=== PATIENT | male | born 1980 | race Caucasian/White ===

== ENCOUNTER 2017-12-10 07:55 | Emergency (ER) | payer MEDICAID, SELFPAY ==
[2017-12-10 07:56] VITALS: BP 157/88; PULSE 98; RESP 18; TEMP 36.8; O2SAT 97; BMI 39.6
--- NOTE | 2017-12-10 08:11 | ED.VISSUMM ---
- ER Visit Summary Date of Service: 12/10/17 Chief Complaint: Sore throat, stuffy nose, and chronic back pain History of Present Illness: The patient is a 37 M presenting with less than 24 hours of rhinorrhea, sore throat, and a dry cough. No neck pain or fever. He is somewhat nauseated and had a few episodes of diarrhea as well. He has several sick contacts with the same symptoms. He has not had a fever and is still eating and drinking normally. No abdominal pain. He has a history of chronic back and neck pain and states that it is no worse than usual. Denies any pain with neck movement. Denies bowel bladder dysfunction. Physical Examination: Vitals are all within normal limits. Not in distress. Has clear secretions of both nares. Throat looks normal. Neck is supple. No meningeal signs. No lymphadenopathy. Lungs are clear with good air movement. Abdomen is soft and nontender. No rash. Minimal paraspinal lumbar tenderness bilaterally but no midline tenderness, erythema, or fluctuance. Neurologic exam is normal. Test Results: None performed Emergency Department Course and Treatment: He looks well overall. Vitals are within normal limits. No fever. Not in distress. No meningeal signs. He does not have body aches or myalgias. I think flu is unlikely but I suspect he does have some form of viral illness. Given his well appearance, I think he can safely follow-up as an outpatient if not improving and return if worse. I will treat him with naproxen. Treatment Plan: Oral naproxen and fluids Disposition: Home stable condition Impression: Initial encounter acute upper respiratory infection of uncertain pathology, chronic back pain This note was generated with [employer] dictation software. It may contain incorrect words, spelling, and punctuation that were not noted in review of the chart prior to signing ED Disposition - Plan for ED Patient: Chief Complaint: General Illness Instructions: ED Upper Resp Infec No Abx Tx Prescriptions: Naproxen [Naprosyn] 500 mg PO BID PRN #20 tablet Referrals: Care Physician,No Primary [Primary Care Provider] -
--- NOTE | 2017-12-10 08:25 | ED.VISSUMM ---
- ER Visit Summary Date of Service: 12/10/17 Chief Complaint: [] History of Present Illness: The patient is a 37 M [] Physical Examination: [] Test Results: [] Emergency Department Course and Treatment: [] Treatment Plan: [] Disposition: [] Impression: [] This note was generated with [employer] dictation software. It may contain incorrect words, spelling, and punctuation that were not noted in review of the chart prior to signing ED Disposition - Plan for ED Patient: Chief Complaint: General Illness Instructions: ED Upper Resp Infec No Abx Tx Prescriptions: Naproxen [Naprosyn] 500 mg PO BID PRN #20 tablet Cyclobenzaprine [Flexeril] 10 mg PO TID PRN #20 tablet PRN Reason: Muscle Spasm Referrals: Care Physician,No Primary [Primary Care Provider] -
[2017-12-10 08:28] VITALS: BP 142/88; PULSE 82; RESP 16; O2SAT 98
== END 2017-12-10 08:29 | disposition home or self-care (01) ==
LOC: ED 08:16
PROVIDERS: Emergency Provider Emergency Medicine
DX: J06.9 Acute upper respiratory infection, unspecified (principal); M54.5 Low back pain; G89.29 Other chronic pain
CPT/HCPCS: 99282

== ENCOUNTER 2018-07-30 10:06 | Emergency (ER) | payer MEDICAID, SELFPAY ==
[2018-07-30 10:07] VITALS: BP 90/60; PULSE 67; RESP 18; TEMP 36.6; O2SAT 98; BMI 37.3
--- NOTE | 2018-07-30 10:30 | ED.DCSUM_ITS ---
- ER Visit Summary Date of Service: 07/30/18 Chief Complaint: Left shoulder pain History of Present Illness: The patient is a 38 M with a 2 day history of shoulder pain on the left with radiation down to the upper arm. He has pain whenever he abduction his arm and is unable to raise it above 90?. He denies paresthesias. He denies any known injury. Last night he took one dose of ibuprofen without improvement. Physical Examination: Vital signs significant for blood pressure 90/60, otherwise unremarkable. Patient sitting upright in bed no acute distress. Head and neck examination unremarkable. Heart is regular rate and rhythm. Lung sounds are clear. Left upper extremity examination was no reproducible tenderness. He does have full range of motion but does have increased pain with abduction over 90?. He has normal sensation. Normal pulses. Test Results: [] Emergency Department Course and Treatment: This time I do not think x-rays be beneficial. Patient clinically has no recent injury and no sign of dislocation. He will be treated with anti-inflammatories. He will refer to orthopedics if not improved. Treatment Plan: [] Disposition: Discharge Impression: Left shoulder tendinitis This note was generated with [employer] dictation software. It may contain incorrect words, spelling, and punctuation that were not noted in review of the chart prior to signing ED Disposition - Plan for ED Patient: Chief Complaint: Upper Extremity Injury Referrals: Care Physician,No Primary [Primary Care Provider] -
--- NOTE | 2018-07-30 10:30 | ED.DEP ---
ED Disposition - Plan for ED Patient: Disposition: Home or Assisted Living Chief Complaint: Upper Extremity Injury Instructions: ED Sprain Shoulder Prescriptions: Naproxen [Naprosyn] 500 mg PO BID PRN PRN #20 tablet PRN Reason: Pain Referrals: Bright Mann MD [STAFF PHYSICIAN] - As Needed
[2018-07-30] MEDS: Naproxen 500 MG Tablet PO (10:51)
== END 2018-07-30 10:58 | disposition home or self-care (01) ==
LOC: ED 10:47
PROVIDERS: Emergency Provider Emergency Medicine
DX: M75.92 Shoulder lesion, unspecified, left shoulder (principal)
CPT/HCPCS: 99282

== ENCOUNTER 2019-02-06 09:15 | Emergency (ER) | payer MEDICAID, SELFPAY ==
[2019-02-06 09:15] VITALS: BMI 39.6
[2019-02-06 09:16] VITALS: BP 137/87; PULSE 86; RESP 15; TEMP 36.2; O2SAT 96; BMI 26.0
--- NOTE | 2019-02-06 09:27 | ED.RN ---
pt reports that he had flexeril and naproxen left from a shoulder injury. used this weekend with relief. pain in with movments.
--- NOTE | 2019-02-06 09:42 | CT_ITS ---
STUDY: CT ABDOMEN AND PELVIS WITHOUT CONTRAST REASON FOR EXAM: Male, 38 years old. Left flank pain and low back pain. RADIATION DOSAGE (If Supplied By Facility): CTDIvol = ( 22.54 ) mGy, DLP = ( 1295.16 ) mGycm TECHNIQUE: Transaxial images were obtained from the dome of the diaphragm to the symphysis pubis without oral contrast, and without intravenous contrast. Sagittal and coronal images were reconstructed. Individualized dose optimization techniques were used for this CT. COMPARISON: Comparison is made with prior study dated July 16, 2010. FINDINGS: The visualized lung bases are unremarkable. The visualized portions of the heart are within normal limits. Calcified granuloma in the anterior superior aspect of the right lobe of liver. The gallbladder is contracted. There are multiple benign calcified granulomata of the spleen. Normal pancreas. Normal bilateral adrenal glands. 4 mm calculus in the lower pole calyx of the right kidney. 3 mm calculus in the lower pole calyx of the left kidney. Normal visualized stomach. Normal small intestine. Normal colon. The appendix is visualized and appears normal. Normal abdominal aorta. Normal inferior vena cava. There is borderline retroperitoneal lymphadenopathy with enlarged nodes no greater than 10mm in the short axis diameter. Normal urinary bladder. Normal abdominal wall. Normal osseous structures. CT/Abdomen/Pelvis without Cont IMPRESSION: Nonobstructive bilateral intrarenal calculi. Calcified splenic granulomas. Electronically Signed: Jamel Miller, at 11:12 EDT , Service support ,
--- NOTE | 2019-02-06 09:46 | ED.DCSUM_ITS ---
- ER Visit Summary Date of Service: 02/06/19 Chief Complaint: Low back and left testicular pain History of Present Illness: The patient is a 38 M who presents with left low back pain and left testicular pain that became worse today. Patient states the pain is gradually gotten worse over the past 3-4 days. Patient states he fell off the couch this morning and cause increased pain in his low back. Patient describes the pain as stabbing and pressure. Patient states the pain is worse with movement. Patient denies any dysuria or hematuria. Patient denies any urinary or stool incontinence. Physical Examination: Vital signs are stable. Patient is afebrile. Patient is in no acute distress. Patient is sitting on the bed playing video games on his phone with his . Musculoskeletal exam reveals tenderness over the left lower lumbar paraspinal muscles. Straight leg raises were negative bilaterally. Strength is 5/5 bilaterally in the lower extremities. There are no sensory deficits noted. Abdomen is soft. Bowel sounds are normal. There is no tenderness. exam showed some tenderness over the left testicle. It is worse over the epididymis. There is no edema. There is a vertical lie. There are no inguinal hernias noted. Test Results: CT scan of the abdomen and pelvis was obtained. There is no acute intra-abdominal process. Urinalysis was obtained. There is no sign of urinary tract infection. Emergency Department Course and Treatment: Patient was given Toradol. Patient was resting comfortably on reevaluation. Given the patient's tenderness over the epididymis will cover the patient with antibiotics for epididymitis. Patient was instructed to use ice to his low back. Patient was instructed to follow-up with his primary care physician in 5-7 days. Patient understood and was agreeable with the plan. All questions were answered. Disposition: Discharge home Impression: 1. Lumbar strain 2. Epididymitis This note was generated with [employer] dictation software. It may contain incorrect words, spelling, and punctuation that were not noted in review of the chart prior to signing ED Disposition - Plan for ED Patient: Disposition: Home or Assisted Living Diagnosis: Lumbar strain, Epididymitis Instructions: ED Neck Back Pain General Prescriptions: Ciprofloxacin [Cipro] 500 mg PO BID #14 tab Referrals: Care Physician,No Primary [Primary Care Provider] - Gavin Tate MD [STAFF PHYSICIAN] - 5-7 Days
[2019-02-06] MEDS: Ketorolac 30 MG/ML Syringe IV (10:26)
[2019-02-06 10:37] LABS: Color, Urine Yellow (Yellow); Glucose, Dipstick Normal (Normal); Ketone-Dipstick Negative (Negative); Leukocyte Esterase-Dipstick Negative /ul (Negative); Nitrite-Dipstick Negative (Negative); Occult Blood-Urine 25 /ul (Negative); Protein-Dipstick 15 mg/dl (Negative); Specific Gravity, Urine 1.015 (1.002-1.030); Urine Bilirubin Dipstick Negative (Negative); Urine Clarity Sl. Cloudy (Clear); Urine Urobilinogen Normal (Normal)
[2019-02-06 12:24] VITALS: BP 143/79; PULSE 87; RESP 18; O2SAT 98
== END 2019-02-06 12:24 | disposition home or self-care (01) ==
PROVIDERS: Emergency Provider Emergency Medicine
DX: S39.012A Strain of muscle, fascia and tendon of lower back, initial encounter (principal); W17.89XA Other fall from one level to another, initial encounter; Y93.9 Activity, unspecified; Y92.9 Unspecified place or not applicable; N45.1 Epididymitis; F12.90 Cannabis use, unspecified, uncomplicated
CPT/HCPCS: 74176; 81002; 96374; 99283; A4216

== ENCOUNTER 2019-07-25 08:09 | Emergency (ER) | payer MEDICAID, SELFPAY ==
[2019-07-25 08:10] VITALS: BP 132/81; PULSE 74; RESP 17; TEMP 36.7; O2SAT 95; BMI 37.8
--- NOTE | 2019-07-25 08:20 | ED.VIS.GEN ---
History of Present Illness Chief Complaint: Sore Throat Informant: Patient Onset: Yesterday Timing: Waxes and wanes Current Severity: Mild Maximum Severity: Moderate Narrative: Patient presents with sore throat that started yesterday, stating it reminds him of when he had strep throat. Pain is worse than the left. He denies other URI symptoms. No fever. He states he does have some pain when he swallows, but is able to tolerate both solids and liquids. Past Medical History - Allergies and Home Meds Allergies/Adverse Reactions: Allergies No Known Allergies Allergy (Verified 07/25/19 08:10) Primary Care Physician: Care Physician,No Primary [Primary Care Provider] - Prior records reviewed: Yes Past Medical History: - - Reviewed Smoking Status: Former smoker Review of Systems General: Denies: Chills, Fever Eyes: Denies: Visual changes - bilaterally ENT: Reports: Sore throat. Denies: Bilateral ear pain, Rhinorrhea Cardiovascular: Denies: Chest pain Respiratory: Denies: Dyspnea, Cough Gastrointestinal: Denies: Abdominal pain, Nausea, Vomiting Genitourinary: Denies: Dysuria Musculoskeletal: Denies: Neck pain, Back pain Skin: Denies: Rash Neurological: Denies: Headache Endocrine: Denies: Polyuria, Polydipsia Hematologic: Denies: Easy bruising, Easy bleeding Allergy: Denies: Uticaria, Swelling of the mouth, Swelling of the tongue Physical Exam Vital Signs/Narrative: Vital Signs Temp Pulse Resp BP Pulse Ox 07/25/19 08:10 98.0 F 74 17 132/81 H 95 Inital Vital Signs reviewed: Yes General: Well nourished, Well developed Head: Normocephalic Eyes: Perrl, EOMI ENT: Moist mucous membranes, TM's clear, - - Mild posterior pharyngeal cobblestoning. Uvula is midline. Minimal tonsillar enlargement. No exudate. Patient is tolerating secretions well and has a strong voice. Neck: Supple, - - Mild bilateral anterior cervical lymphadenopathy, left greater than right. Cardiovascular: Regular rate, Regular rhythm Respiratory: No distress, CTA bilaterally Abdomen: Soft, Nontender Back: Nontender Extremities: Nontender Skin: Normal color, No rash Neurological: Alert, Oriented x3 Psychological: Normal affect Diagnostic/Tx/Re-eval Rapid strep returns positive. - Medical Decision Making Test results discussed with the patient. He chose injection of Bicillin LA for treatment. Dose will be given here prior to discharge. He will be referred to Dr. Sanchez for follow-up, next on the no doc list. ED Disposition - Plan for ED Patient: Disposition: Home or Assisted Living Diagnosis: Strep pharyngitis Instructions: PHARYNGITIS, Strep (Confirmed) Referrals: Fanta Sanchez, DO [NON-STAFF] - As Needed
[2019-07-25] MEDS: Penicillin G Benzathine 1.2 MU/2 ML Syringe IM (09:04)
== END 2019-07-25 09:21 | disposition home or self-care (01) ==
PROVIDERS: Emergency Provider Emergency Medicine
DX: J02.0 Streptococcal pharyngitis (principal); Z87.891 Personal history of nicotine dependence
CPT/HCPCS: 87077; 87880; 96372; 99282

== ENCOUNTER → 2019-12-27 09:32 | Outpatient (CLI) | payer MEDICAID, SELFPAY ==
[2019-12-27 09:27] VITALS: BMI 37.8
--- NOTE | 2019-12-27 09:33 | RAD_ITS ---
STUDY: X-RAY - RIGHT WRIST REASON FOR EXAM: Medial wrist pain, no specific injury. TECHNIQUE: 3 view(s) of the wrist were obtained. COMPARISON: None. FINDINGS: Normal visualized distal radius and ulna. Normal radiocarpal articulation. Normal distal radioulnar articulation. Normal carpal bones. Normal carpal articulations. Normal carpometacarpal articulation of the thumb. Normal second through fifth carpometacarpal articulations. Normal visualized metacarpal bones. The soft tissue structures are unremarkable. RAD/Wrist min 3 Views IMPRESSION: Normal x-ray examination of the right wrist. Electronically Signed: Mohit Hassan MD at 14:57 EST Tel , Service support ,
--- NOTE | 2019-12-27 10:16 | RAD_ITS ---
STUDY: X-RAY - RIGHT RADIUS AND ULNA REASON FOR EXAM: Medial pain, no specific injury. TECHNIQUE: 2 view(s) of the forearm. COMPARISON: None. FINDINGS: There is no demonstrated soft tissue swelling. Normal visualized radius. Normal visualized ulna. There is a suspected small intra-articular body in the elbow demonstrated only on the AP view. RAD/Forearm 2 Views IMPRESSION: Suspected small intra-articular body in the elbow. Otherwise, unremarkable x-ray examination of the right radius and ulna. Electronically Signed: Mohit Hassan MD at 14:57 EST Tel , Service support ,
== END ==
PROVIDERS: Referring Provider Orthopaedic Surgery; Visit Provider Orthopaedic Surgery
DX: S50.11XA Contusion of right forearm, initial encounter (principal); S60.211A Contusion of right wrist, initial encounter; M25.531 Pain in right wrist
CPT/HCPCS: 73090; 73110

== ENCOUNTER 2020-01-21 09:30 | Outpatient (RCR) | payer MEDICAID, SELFPAY ==
[2019-12-27 09:27] VITALS: BMI 37.8
--- NOTE | 2020-01-01 10:30 | HP.OTEVAL ---
Patient's Visit Information FAZAL SILVA is a 39 year old M, referred to Occupational Therapy by Dr. Jessica Holt DO, with a diagnosis of right wrist/forearm contusion. Date of Evaluation: 12/31/19 Occupational Therapist: CHATO Darden/Luis Alberto, CHT - Subjective Subjective: This 39 year old male was seen for OT eval with dx of right wrist/forearm contusion. Pt states he was hitting ice from his car with his right forearm and wrist. Pt states he slipped while hitting the ice of his car and hit his arm. pt states pain lasted a few days and decided to see for pain. Pt was placed in brace and was instructed to wear brace when he sleeps and keep it on as much as he can. pt does not work. pt plays video games prior to injury pt was playing 5-10 hours a day. pt states since his injury he is playing 4-5 hours at a time. Pt would like to return to his PLOF and IND with ADLS and IADL. - ADLs Comments: pt states lifting items off the ground are more difficulty-. pt states he is compensating for tasks. - Pain right wrist/ forearm 4 Pain Intensity Range: 0, 5 - ROM Forearm: right supination 60 left 70 Wrist: right 55/55 left 60/55 ROM Comments: left wrist UD [address] 15. 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 Goal:: pt will demo right foream/wrist ROM equal to unaffected UE by d/c to return pt to PLOF with ADLS and IADLS. Goal:: pt will report pain no greater than 1/10 with use of ADLS and IADLs by d/c Goal:: pt will report he is IND with ADls and IADLs by d/c. - Rehabilitation General Assessment: This 39 year old male demo with painful right forearm and wrist following contusion 3 weeks ago. Pt demo limited use of right UE as pain limits functional use of right UE for ADLs and IADLS. pt would benefit from skilled OT services 2x week for 4 weeks to decrease pts pain, increase ROM and strength to return pt to PLOF. Today pt was ed. on AROM ex of forearm, wrist and digits. Pt demo understanding was given handout on ex and agree to POC. Rehabilitation Potential: Good - Anticipated Interventions Anticipated Interventions: A/AAROM/PROM, Strengthening, Modalities, Joint Protection/Energy Conservation, Ergonomic Education - Visit Plan Frequency: 1-2x /Week Duration: 4 Weeks TEXT: Thank you for the opportunity to evaluate your patient. For Medicare and Medicare HMO plans, please review the plan of care and approve it. It will need to be FAXED BACK to us at [phone] for Medicare purposes. Please let me know if there are questions or concerns regarding this plan of care. Physician Signature: Date:
--- NOTE | 2020-04-15 12:01 | HP.OT.NRP ---
FAZAL SILVA was seen in my office for initial evaluation on 12/31/19. The following Plan of Care was established for this patient: Initial Frequency: 1-2x /Week Initial Duration: 4 Weeks Plan: cont with PRE on issolation Anticipated Interventions: A/AAROM/PROM, Strengthening, Modalities, Joint Protection/Energy Conservation, Ergonomic Education This patient was last seen in our office 01/21/20. Pertinent comments regarding their Occupational therapy will appear below: pt was seen for 7 OT visits- pt was progressing but continued to struggle with weakness and pain with weight bearing. Pt has not scheduled further apts at this time and is D/C due to time lapse in skilled therapy services. At this point I will be discontinuing this patient from occupational therapy. I would be happy to see this patient again in the future if found appropriate by the physician. Thank you! Cynthia Frazier, OTR/L, CHT
== END 2020-01-21 19:00 | disposition home or self-care (01) ==
LOC: OT 09:30
PROVIDERS: Referring Provider Orthopaedic Surgery; Visit Provider Orthopaedic Surgery
DX: S60.211D Contusion of right wrist, subsequent encounter (principal); S50.11XD Contusion of right forearm, subsequent encounter
CPT/HCPCS: 97035; 97110; 97140; 97166; 97530

== ENCOUNTER 2023-01-15 20:19 | Emergency (ER) | payer MEDICAID, SELFPAY ==
[2023-01-15 20:20] VITALS: BP 153/92; PULSE 67; RESP 16; RESP 18; TEMP 36.1; BMI 40.1
--- NOTE | 2023-01-15 20:50 | EX.ED.DYSGE1 ---
HPI <JW Latham - Last Filed: 01/15/23 20:56> History of Present Illness Chief Complaint: Dental Narrative Narrative: Patient is a 42-year-old male who is currently on Social Security, who presents to the emergency department with left upper jaw pain worse to the molar and premolar as well as the bicuspid. Patient states that this pain is been going on and off for 2 weeks. Patient states that hot and cold does not matter. Patient states that pressure causes most of the pain. He denies any specific swelling. He has been trying to get into a dentist to have his teeth looked at however he is unable to get in for multiple months. He denies any fever or chills, denies any trismus or difficulty breathing. PFSH <JW Latham - Last Filed: 01/15/23 20:56> PFSH Home Medications naproxen 500 mg tablet (Naprosyn) 500 mg PO BID PRN pain #30 tabs 01/15/23 [Rx Last Taken Unknown] Allergy/AdvReac Type Severity Reaction Status Date / Time No Known Allergies Allergy Verified 07/25/19 08:10 Social History (Updated 12/27/19 @ 11:[address] Jessica Holt, DO) Smoking Status: Former smoker ROS <JW Latham - Last Filed: 01/15/23 20:56> ROS ED ROS Narrative Constitutional: Negative for fever, chills, weight loss, weakness Eyes: Negative for vision loss, vision change, double vision ENT: Negative for any sore throat, ear pain, congestion. Positive for left upper jaw pain, left posterior teeth pain Cardiovascular: Negative for any chest pain, tightness, palpitations Respiratory: Negative for any cough, sputum production, hemoptysis, dyspnea, dyspnea on exertion, orthopnea Gastrointestinal: Negative for any abdominal pain, nausea, vomiting, diarrhea, constipation, blood in stool, blood in vomit : Negative for any urinary frequency, dysuria, retention, blood in urine Muscle skeletal: Negative for any muscle joint pain, stiffness, myalgias, arthralgias, neck pain, back pain Neurological: Negative for any headache, syncope, numbness or tingling, dizziness Skin: Negative for any rashes, lumps, itching, abrasions, lacerations Psychiatric: Negative for any depression, anxiety, stress, suicidal ideation, homicidal ideation Hematologic: Negative for any easy bruising, excessive bruising, easy bleeding Allergies: Negative for any eczema, hives, rash EXAM <JW Latham - Last Filed: 01/15/23 20:56> Physical Exam Narrative Exam Narrative: Vital signs reviewed. HEET: Head normocephalic atraumatic, TMs clear bilaterally. Posterior pharynx is clear, moist mucous membranes. Nares clear bilaterally. Patient has cavities to the bicuspid on the left upper jaw, followed by cavities to the premolar as well as the molar on the upper left jaw. Negative for any fluctuance, negative for any signs or symptoms of deep tissue infection. Patient is able to drink cold and hot fluid without any significant discomfort. No suspicion for any Ludwigs Angina. Neck: Supple with no lymphadenopathy or tenderness. No signs of meningismus, negative jolt sign. Cardiac: Regular rate and rhythm no murmurs gallops or rubs, equal peripheral pulses bilaterally. Respiratory: Lungs clear to auscultation bilaterally. No chest tenderness. Abdomen: Soft, nontender, nondistended. No abdominal bruit or pulsatile masses. No hepatosplenomegaly Extremities: No peripheral edema, no signs of gross trauma or deformity. Active full range of motion of all extremities. Neuro: Cranial nerves II through XII intact, no focal neurological deficits. Skin: Clean dry and intact with no rash, purpura, petechiae, vesicles or pustules. Backs/flank: No CVA tenderness, no midline spinal tenderness, no deformity. Psych: Normal mood and affect. No SI, HI or acute psychosis. Const Vital Signs: 01/15/23 20:20 01/15/23 20:20 Temperature 97.0 F L 97.0 F L Temperature Source Temporal Temporal Pulse Rate 67 67 Respiratory Rate 16 18 Blood Pressure 153/92 H 153/92 H Blood Pressure Mean 112 112 <Dr. Oskar Gracia MD - Last Filed: 01/15/23 21:02> Physical Exam Const Vital Signs: 01/15/23 20:20 01/15/23 20:20 Temperature 97.0 F L 97.0 F L Temperature Source Temporal Temporal Pulse Rate 67 67 Respiratory Rate 16 18 Blood Pressure 153/92 H 153/92 H Blood Pressure Mean 112 112 MDM <JW Latham - Last Filed: 01/15/23 20:56> [facility] Differential Diagnosis Differential Diagnosis: Ludwigs Angina Why less likely: No physical evidence. Patient appears well. Differential Diagnosis: Irreversible pulpitis Why less likely: Patient is eating and drinking, pain does not get worse with any hot or cold. Treatment and Re-Evaluation :: Patient appears generally well, patient appears nontoxic, vital signs are stable. Patient presents to the emergency department with complaints of left posterior tooth pain has been ongoing for the last 2 weeks. Patient will receive a dental referral list. There is no signs or symptoms of significant infection. At this time, not believe that antibiotics are necessary. Patient will be given a prescription for naproxen for anti-inflammatories. He will also be given the dental referral list. Patient is happy with the plan of care. Patient received naproxen here before discharge. He was given return precautions. At this time plan is no red flag signs. All questions answered. <Dr. Oskar Gracia MD - Last Filed: 01/15/23 21:02> [facility] Narrative Medical decision making narrative: I have personally performed a face to face assessment of the patient and have reviewed the JAYDA Note. I performed a substantive portion of the visit including all aspects of the following. My hicks findings include: History is remarkable for dental pain and involves tooth #19, 20 and 21. Patient has dental caries noted. There is evidence of periodontal disease. There is also evidence of gingivitis. There is no facial swelling. Patient denies fever or chills. Patient has a traumatic fever, heart murmur, mitral prolapse or SBE. Patient denies difficulty opening closing his mouth. Exam is remarkable for elevated blood pressure. He has poor dentition. There is numerous caries noted. There is no peridental abscess. There is no trismus. There is notes of facial cellulitis. Medical Decision Making patient has dental pain due to dental caries. Patient states cold water makes his pain better. There is no sensitivity to cold or hot. Patient does not have a dentist. We will give him a dental sheet. Lungs are clear to auscultation. Heart was regular. There is no murmur, gallop or rub. There is no Janeway or Osler nodes noted. Patient was treated with NSAID and given dental referral. Other additions or changes: [None] Discharge Plan Triage Chief Complaint: Dental ED Midlevel Provider: Azam Sanchez ED Provider: Oskar Gracia Dx/Rx/DC Orders Clinical Impression: Dental caries, Pain, dental Prescriptions: New naproxen [Naprosyn] 500 mg tablet 500 mg PO BID PRN (Reason: pain) Qty: 30 0RF Primary Care Provider: Care Physician,No Primary Referrals: Care Physician,No Primary [Primary Care Provider] - Activity Restrictions/Additional Instructions: Follow-up with the dental referral list Disposition Disposition: Home, Self Care
[2023-01-15] MEDS: Naproxen 500 MG Tablet PO (21:14)
== END 2023-01-15 21:15 | disposition home or self-care (01) ==
PROVIDERS: Emergency Provider Emergency Medicine; Visit Provider Emergency Medicine
DX: K02.9 Dental caries, unspecified (principal); K08.89 Other specified disorders of teeth and supporting structures; Z87.891 Personal history of nicotine dependence
CPT/HCPCS: 99283

== ENCOUNTER 2024-12-07 11:12 | Emergency (ER) | payer MEDICAID, SELFPAY ==
[2024-12-07 11:13] VITALS: BP 117/80; PULSE 97; RESP 18; TEMP 37.1; O2SAT 95; BMI 40.7
[2024-12-07 15:13] VITALS: PULSE 111; RESP 18; TEMP 38.1; O2SAT 94
--- NOTE | 2024-12-07 15:14 | CT_ITS ---
PROCEDURE: ABDOMEN/PELVIS WITHOUT CONT REASON FOR EXAM: Pain TECHNIQUE: Axial with sagittal and coronal reformats of the abdomen and pelvis without contrast. COMPARISON: None. FINDINGS: Lung bases: Clear Liver: Unremarkable. Gallbladder: Unremarkable. Spleen: Unremarkable. Pancreas: Unremarkable. Adrenals: Unremarkable. Kidneys: 2 mm nonobstructing left lower pole renal calculus. Bladder: Unremarkable. Reproductive Organs: Unremarkable. Bowel: Unremarkable. Appendix: Normal. Lymph nodes: No suspicious lymph node enlargement. Vasculature: Major vascular structures are unremarkable. Peritoneum / Retroperitoneum: No ascites. No free air. Bones: Unremarkable. CT/Abdomen/Pelvis without Cont IMPRESSION: No acute CT process. 2 mm nonobstructing left renal calculus. One or more dose reduction techniques were used (e.g., Automated exposure contr ol, adjustment of the mA and/or kV according to patient size, use of iterative reconstruction technique). Reading Location: [facility]
--- NOTE | 2024-12-07 15:17 | EX.ED.DYSGE1 ---
HPI <JW Latham - Last Filed: 12/07/24 18:23> History of Present Illness Chief Complaint: Cold Sx Narrative Narrative: Patient is a 44-year-old male with no significant medical history presents to the emergency department for 3 days of generalized malaise, cough, body aches. Patient states he is also having left-sided flank pain. Patient states he is feeling worse, he is also concerned that something is wrong with his kidney. He states all he drinks his energy drinks and he knows that is not good for him. Denies any nausea or vomiting. States he has had fevers greater than 101 at home. PFSH <JW Latham - Last Filed: 12/07/24 18:23> [facility] Home Medications ?Medication ?Instructions ?Recorded ?Last Taken ?Type NK 12/07/24 Unknown History Allergy/AdvReac Type Severity Reaction Status Date / Time No Known Allergies Allergy Verified 12/07/24 11:13 Social History (Updated 12/27/19 @ 11:[address] Jessica Holt, DO) Smoking Status: Former smoker ROS <JW Latham - Last Filed: 12/07/24 18:23> ROS ED ROS Narrative Constitutional: Negative for weight loss, weakness. Positive for fever and chills Eyes: Negative for vision loss, vision change, double vision ENT: Negative for any sore throat, ear pain, congestion Cardiovascular: Negative for any chest pain, tightness, palpitations Respiratory: Negative for any sputum production, hemoptysis, dyspnea, dyspnea on exertion, orthopnea. Positive for cough Gastrointestinal: Negative for any abdominal pain, nausea, vomiting, diarrhea, constipation, blood in stool, blood in vomit : Negative for any urinary frequency, dysuria, retention, blood in urine Muscle skeletal: Negative for any neck pain. Positive left-sided flank pain Neurological: Negative for any headache, syncope, dizziness Skin: Negative for any rashes, itching, abrasions, lacerations Psychiatric: Negative for any depression, anxiety, stress, suicidal ideation, homicidal ideation Hematologic: Negative for any excessive bruising, easy bleeding EXAM <JW Latham - Last Filed: 12/07/24 18:23> Physical Exam Narrative Exam Narrative: Vital signs reviewed. Patient did have a fever here 100.1 oral temperature HEET: Head normocephalic atraumatic, TMs clear bilaterally. Posterior pharynx is clear, moist mucous membranes. Nares clear bilaterally. Neck: Supple with no lymphadenopathy or tenderness. No signs of meningismus. Cardiac: Regular rate and rhythm no murmurs gallops or rubs, equal peripheral pulses bilaterally. Respiratory: Lungs clear to auscultation bilaterally. No chest tenderness. Abdomen: Soft, nontender, nondistended. No abdominal bruit or pulsatile masses. No hepatosplenomegaly Extremities: No peripheral edema, no signs of gross trauma or deformity. Active full range of motion of all extremities. Neuro: Cranial nerves II through XII intact, no focal neurological deficits. Skin: Clean dry and intact with no rash, purpura, petechiae, vesicles or pustules. Backs/flank: Positive for left-sided CVA tenderness no midline spinal tenderness, no deformity. Psych: Normal mood and affect. No SI, HI or acute psychosis. Const Vital Signs: 12/07/24 11:13 12/07/24 15:13 12/07/24 15:37 Temperature 98.7 F 100.5 F H Temperature Source Oral Oral Pulse Rate 97 111 H Respiratory Rate 18 18 Respiratory Pattern Normal Blood Pressure 117/80 Blood Pressure Mean 92 Pulse Ox 95 94 Oxygen Delivery Method Room Air Room Air 12/07/24 17:21 Temperature 98.8 F Temperature Source Oral Pulse Rate Respiratory Rate Respiratory Pattern Blood Pressure Blood Pressure Mean Pulse Ox Oxygen Delivery Method <Dr. Gavin Sanon DO - Last Filed: 12/07/24 23:45> Physical Exam Const Vital Signs: 12/07/24 11:13 12/07/24 15:13 12/07/24 15:37 Temperature 98.7 F 100.5 F H Temperature Source Oral Oral Pulse Rate 97 111 H Respiratory Rate 18 18 Respiratory Pattern Normal Blood Pressure 117/80 Blood Pressure Mean 92 Pulse Ox 95 94 Oxygen Delivery Method Room Air Room Air 12/07/24 17:21 Temperature 98.8 F Temperature Source Oral Pulse Rate Respiratory Rate Respiratory Pattern Blood Pressure Blood Pressure Mean Pulse Ox Oxygen Delivery Method [facility] <JW Latham - Last Filed: 12/07/24 18:23> [facility] Lab Data Labs: Laboratory Results - last 24 hr 12/07/24 12/07/24 15:20 16:47 WBC 6.2 RBC 5.10 Hgb 13.8 Hct 42.5 MCV 83.3 MCH 27.1 MCHC 32.5 RDW Std Deviation 39.6 RDW Coeff of Terrie 12.9 Plt Count 244 MPV 9.5 Immature Gran % (Auto) 0.800 Neut % (Auto) 81.7 H Lymph % (Auto) 5.2 L [place] % (Auto) 11.8 H Eos % (Auto) 0.0 Baso % (Auto) 0.5 Absolute Neuts (auto) 5.1 Absolute Lymphs (auto) 0.32 L Nucleated RBC % 0 Sodium 136 Potassium 3.2 L Chloride 102 Carbon Dioxide 28.0 Anion Gap 6 BUN 11 Creatinine 0.95 Estim Creat Clear Calc 136.58 Est GFR (MDRD) Af Amer 112 Est GFR (MDRD) Non-Af 93 BUN/Creatinine Ratio 11.6 Glucose 140 H Calcium 8.6 Total Bilirubin 0.50 AST 32 ALT 38 Alkaline Phosphatase 58 Total Protein 7.0 Albumin 3.4 Globulin 3.6 Albumin/Globulin Ratio 0.9 Urine Color Yellow Urine Clarity Clear Urine pH 6.0 Ur Specific [place] 1.025 Urine Protein 100 H Urine Glucose (UA) Normal Urine Ketones 50 H Urine Occult Blood 150 H Urine Nitrite Negative Urine Bilirubin Negative Urine Urobilinogen 1 H Ur Leukocyte Esterase Negative Urine RBC 0-5 SEEN Urine WBC 0 SEEN Ur Squamous Epith Cells 0 SEEN Urine Bacteria 0 SEEN Urine Mucus RARE Radiography Diagnostic Testing: Clinical Impression(s) from Imaging Studies Abdomen/Pelvis CT 12/07/24 15:14 IMPRESSION: No acute CT process. 2 mm nonobstructing left renal calculus. One or more dose reduction techniques were used (e.g., Automated exposure control, adjustment of the mA and/or kV according to patient size, use of iterative reconstruction technique). Reading Location: [facility] Chest X-Ray 12/07/24 15:40 IMPRESSION: No evidence of acute cardiopulmonary disease. Negative examination. Reading Location: [address] Treatment and Re-Evaluation :: Differential diagnosis includes however is not limited to: Obstructing uropathy, pyelonephritis, UTI, muscle aches, influenza A, COVID-19, influenza, community-acquired pneumonia Patient appears generally well, vital signs are stable, patient is nontoxic-appearing. Patient is slightly fever to 100.1 ?F. Patient will receive laboratory values including CBC, CMP, urinalysis, chest x-ray as well as CT of the abdomen pelvis without contrast will be ordered. This is to rule out any kidney stone. All radiologic examinations were read, reviewed by the emergency department attending. From these reads, a plan of care will be put in place. COVID-19 influenza RSV swab will be ordered. Patient given IV fluids, Zofran as well as Toradol, p.o. Tylenol. On reevaluation, patient was resting comfortably. Patient CT scan shows no acute process the abdomen pelvis. There is a 2 mm nonobstructing left lower pole renal calculus. Patient's chest x-ray shows no evidence of acute cardiopulmonary disease. Laboratory data showed normal CBC, patient's chemistries were unremarkable. Urinalysis did show some blood and this is secondary to some dehydration. Patient's nasal swab was positive for influenza A. This does coincide with outpatient symptoms. On reevaluation, I spoke with the patient. Instructed take [id number] ibuprofen and Tylenol. At this time, patient stable for discharge. Will return for any worsening symptoms. <Dr. Gavin Sanon, DO - Last Filed: 12/07/24 23:45> [facility] Narrative Medical decision making narrative: I have personally performed a face to face assessment of the patient and have reviewed the JAYDA Note. I performed a substantive portion of the visit including all aspects of the following. My hicks findings include: History: Patient presents with abdominal pain and chest pain wound has been getting worse over the past week. Patient states it is gradually getting worse. Patient describes it as stabbing. Patient states it is diffuse across his abdomen and chest. Patient states it did get better when he was able to lay in the bathtub. Patient admits to subjective fevers and chills. Patient also admits to a sore throat. Patient admits to some nausea and vomiting. Patient admits to pain in his neck and back. Exam: Vital signs are stable. Patient is afebrile. Patient is in no acute distress. Oral mucosa is pink and moist. Neck is supple. Trachea is midline. There is no JVD. Heart was regular rate and rhythm. Lungs are clear and equal bilaterally. There is good respiratory effort noted. Abdomen is soft. Bowel sounds are normal. There is mild diffuse tenderness. There is no rebound or guarding noted. Cranial nerves II through XII are intact. There are no focal motor or sensory deficits noted. Medical Decision Making: Differential diagnosis includes pneumonia, viral illness, bronchitis, urinary tract infection, ureteral calculus, and pyelonephritis. CBC will be obtained to assess for leukocytosis and anemia. Comprehensive metabolic profile will be obtained to assess for hepatic function, renal function, and electrolyte abnormality. Urinalysis will be obtained to assess for urinary tract infection and hematuria. Chest x-ray will be obtained to assess for pneumonia and bronchitis. CT scan of the abdomen pelvis will be obtained to assess for ureteral calculus and pyelonephritis. COVID-19, influenza, and RSV PCR will be obtained to assess for viral illness. Patient was given IV fluids, Tylenol, and Toradol. CBC was reviewed and was within normal limits. Comprehensive metabolic profile was reviewed. There is a mild hypokalemia of 3.2. Glucose was slightly elevated at 140. The remainder is within normal limits. Urinalysis was reviewed. There is no evidence of urinary tract infection or hematuria. COVID-19 PCR was reviewed and was negative. Influenza PCR was reviewed and was positive for influenza A and negative for influenza B. RSV PCR was reviewed and was negative. Patient was advised of his findings. Patient was instructed to take Tylenol or ibuprofen as needed for any aches or fevers. Patient was instructed to follow-up with his primary care physician in 5 to 7 days. Patient understood and was agreeable with the plan. All questions were answered. Lab Data Labs: Laboratory Results - last 24 hr 12/07/24 12/07/24 15:20 16:47 WBC 6.2 RBC 5.10 Hgb 13.8 Hct 42.5 MCV 83.3 MCH 27.1 MCHC 32.5 RDW Std Deviation 39.6 RDW Coeff of Terrie 12.9 Plt Count 244 MPV 9.5 Immature Gran % (Auto) 0.800 Neut % (Auto) 81.7 H Lymph % (Auto) 5.2 L [place] % (Auto) 11.8 H Eos % (Auto) 0.0 Baso % (Auto) 0.5 Absolute Neuts (auto) 5.1 Absolute Lymphs (auto) 0.32 L Nucleated RBC % 0 Sodium 136 Potassium 3.2 L Chloride 102 Carbon Dioxide 28.0 Anion Gap 6 BUN 11 Creatinine 0.95 Estim Creat Clear Calc 136.58 Est GFR (MDRD) Af Amer 112 Est GFR (MDRD) Non-Af 93 BUN/Creatinine Ratio 11.6 Glucose 140 H Calcium 8.6 Total Bilirubin 0.50 AST 32 ALT 38 Alkaline Phosphatase 58 Total Protein 7.0 Albumin 3.4 Globulin 3.6 Albumin/Globulin Ratio 0.9 Urine Color Yellow Urine Clarity Clear Urine pH 6.0 Ur Specific [place] 1.025 Urine Protein 100 H Urine Glucose (UA) Normal Urine Ketones 50 H Urine Occult Blood 150 H Urine Nitrite Negative Urine Bilirubin Negative Urine Urobilinogen 1 H Ur Leukocyte Esterase Negative Urine RBC 0-5 SEEN Urine WBC 0 SEEN Ur Squamous Epith Cells 0 SEEN Urine Bacteria 0 SEEN Urine Mucus RARE Radiography Diagnostic Testing: Clinical Impression(s) from Imaging Studies Abdomen/Pelvis CT 12/07/24 15:14 IMPRESSION: No acute CT process. 2 mm nonobstructing left renal calculus. One or more dose reduction techniques were used (e.g., Automated exposure control, adjustment of the mA and/or kV according to patient size, use of iterative reconstruction technique). Reading Location: [facility] Chest X-Ray 12/07/24 15:40 IMPRESSION: No evidence of acute cardiopulmonary disease. Negative examination. Reading Location: [address] Discharge Plan Triage Chief Complaint: Cold Sx ED Midlevel Provider: Azam Sanchez ED Provider: Gavin Sanon Dx/Rx/DC Orders Clinical Impression: Influenza A, Myalgia Instructions: ED Influenza (Adult), ED Myalgias Prescriptions: No Action NK Primary Care Provider: Care Physician,No Primary Referrals: Care Physician,No Primary [Primary Care Provider] - Activity Restrictions/Additional Instructions: Continue take ibuprofen Tylenol Print Language: Occitan Disposition Disposition: Home, Self Care Discharge Date/Time: 12/07/24 18:30
[2024-12-07] MEDS: 0.9% Normal Saline (1000mL) 1,000 ML 999 ML IV (15:26)
[2024-12-07] MEDS: Acetaminophen 500 MG Tablet 1000 MG PO (15:26)
[2024-12-07] MEDS: Ketorolac 15 MG/ML Vial IV (15:26)
--- NOTE | 2024-12-07 15:40 | RAD_ITS ---
PROCEDURE: CHEST PA AND LATERAL REASON FOR EXAM: Cough. TECHNIQUE: Frontal and lateral views of the chest. COMPARISON: None. FINDINGS: The heart size is normal. The mediastinal contour is unremarkable. The lungs are clear. The bones are unremarkable. RAD/Chest PA and Lateral IMPRESSION: No evidence of acute cardiopulmonary disease. Negative examination. Reading Location: [address]
[2024-12-07 15:46] LABS: Absolute Lymphocyte Count 0.32 X10^3/uL (0.83-4.51); Absolute Neutrophil Count 5.1 X10^3/uL (2.0-7.7); Basophil# 0.03 X10^3/uL; Basophil% 0.5 % (0-1); Hematocrit 42.5 % (40-54); Hemoglobin 13.8 g/dL (13.0-16.5); Lymphocyte # 0.32 X10^3/ul (0.83-4.51); Lymphocyte % 5.2 % (19-41); Mean Corp Hgb Conc 32.5 g/dL (32-36); Mean Corpuscular Hgb 27.1 pg (27.0-32.0); Mean Corpuscular Volume 83.3 fL (80-94); Mean Platelet Vol. 9.5 fl (6.2-12.0); Monocyte# 0.73 X10^3/uL; Monocyte% 11.8 % (0-10); NRBC Flagged by Analyzer 0 % (0-5); Neutrophil # 5.08 X10^3/uL (2.7-7.7); Neutrophil % 81.7 % (47-70); POSITIVE DIFFERENTIAL YES; Platelet Count 244 K/mm3 (150-450); RBC Distribution Width CV 12.9 % (11.6-14.6); RBC Distribution Width SD 39.6 fl (35.1-43.9); White Blood Count 6.2 K/mm3 (4.4-11.0)
[2024-12-07 15:48] LABS: ALB/GLOB Ratio 0.9 RATIO (0.9-2.4); AST(SGOT) 32 U/L (15-37); Alanine Aminotransfer ALT/SGPT 38 U/L (16-61); Albumin, Serum 3.4 g/dL (3.2-5.0); Alkaline Phosphatase 58 U/L (45-117); Anion Gap 6 (5-15); BUN 11 mg/dL (7-18); BUN/Creat Ratio 11.6 RATIO (10-20); Calcium,Total 8.6 mg/dL (8.5-10.1); Chloride 102 mmol/L (98-107); Creatinine, Serum 0.95 mg/dL (0.70-1.30); EST Glomerular Filtration Rate 93 mL/min (>60); Est Glom Filt Rate - Afr Amer 112 mL/min (>60); Estimated Creatinine Clearance 136.58 ml/min; Globulin 3.6 g/dL (2.2-4.2); Glucose 140 mg/dL (74-106); Potassium 3.2 mmol/L (3.5-5.1); Sodium Level 136 mmol/L (136-145)
[2024-12-07 16:53] LABS: Bacteria 0 SEEN /hpf (None Seen); Squamous Epithelial Cells - UA 0 SEEN /hpf (0-5); White Blood Cells 0 SEEN /hpf (0-5)
[2024-12-07 16:59] LABS: Glucose, Dipstick Normal (Normal); Ketone-Dipstick 50 mg/dl (Negative); Leukocyte Esterase-Dipstick Negative /ul (Negative); Nitrite-Dipstick Negative (Negative); Occult Blood-Urine 150 /ul (Negative); Protein-Dipstick 100 mg/dl (Negative); Specific Gravity, Urine 1.025 (1.002-1.030); Urine Bilirubin Dipstick Negative (Negative); Urine Clarity Clear (Clear); Urine Urobilinogen 1 mg/dl (Normal)
[2024-12-07 17:01] LABS: Color, Urine Yellow (Yellow)
[2024-12-07 17:21] VITALS: TEMP 37.1
[2024-12-07 17:28] LABS: Mucous, Urine RARE /hpf (<or=2+); Red Blood Cells-Urine 0-5 SEEN /hpf (0-5)
== END 2024-12-07 18:30 | disposition home or self-care (01) ==
PROVIDERS: Nurse Practitioner; Emergency Provider Emergency Medicine; Visit Provider Emergency Medicine
DX: J10.1 Influenza due to other identified influenza virus with other respiratory manifestations (principal); Z87.891 Personal history of nicotine dependence
CPT/HCPCS: 71046; 74176; 80053; 81001; 85025; 87631; 96361; 96374; 99282